=== PATIENT | male | born 1965 | race Caucasian/White ===

== ENCOUNTER 2023-04-24 08:37 | Emergency (ER) | payer OTHER, SELFPAY ==
[2023-04-24 08:43] VITALS: BP 179/88; PULSE 106; RESP 19; TEMP 36.6; O2SAT 93; BMI 33.6
--- NOTE | 2023-04-24 08:54 | EKG12_ITS ---
Test Reason : SOB Blood Pressure : / mmHG Vent. Rate : 109 BPM Atrial Rate : 109 BPM P-R Int : 136 ms QRS Dur : 084 ms QT Int : 318 ms P-R-T Axes : 043 041 051 degrees QTc Int : 428 ms Sinus tachycardia Otherwise normal ECG Confirmed by DEJA HENDERSON, TRACY ([id number]), magazine editor ROHIT MORALES ([id number]) on 05/26/2023 1:36:57 PM Referred By: MYNOR Confirmed By:TRACY SHORT MD
--- NOTE | 2023-04-24 08:57 | NURSING ---
I DONT BELIEVE ANYTHING YOU SAY, YECENIA HAD TO MANY PEOPLE KILLED IN THIS HOSPITAL.
[2023-04-24 08:58] VITALS: O2SAT 94
[2023-04-24 08:59] VITALS: BP 179/88; PULSE 114; RESP 26; O2SAT 92
--- NOTE | 2023-04-24 09:09 | EX.ED.DYSGE1 ---
HPI History of Present Illness Chief Complaint: Shortness of Breath Narrative Narrative: Patient is a 57-year-old male who is presenting to the ER today with multiple flulike symptoms. Patient has sinus headache, cough, congestion, sore throat, bilateral ear congestion/popping, left-sided chest ache/tightness. Patient says that he woke up this morning at 4:00 in the morning which he totally does. He drinks a pot of coffee, smokes 5 cigarettes, then walks a dog. Patient says that he got back to his house at 715 and had chills, felt feverish, no nausea, vomiting, diarrhea. Chest ache, short of breath, and did not feel well. Patient took an ambulance because he does not have the keys to his car at this time, he lives by himself at home with a dog. Patient was due to travel this morning to [place]. Patient has no recent sick contacts. Patient has no recent traveling. Patient does have a history of TIA/stroke. Patient was taking a full aspirin a day but currently does not. No other acute complaints at this time. Patient does have myalgia and arthralgia. [facility] Medical History (Updated 04/24/23 @ 10:[address] Rubén Villalta DO) TIA (transient ischemic attack) Allergy/AdvReac Type Severity Reaction Status Date / Time adhesive tape Allergy Hives Verified 04/24/23 08:43 codeine Allergy HYPERTENSIO Verified 04/24/23 08:43 N Social History Smoking Status: Current every day smoker tobacco type: cigarettes ROS ROS ED ROS Narrative REVIEW OF SYSTEMS: Unless otherwise stated in this report the patient's positive and negative responses for review of systems for constitutional, eyes, ENT, cardiovascular, respiratory, gastrointestinal, neurological, , musculoskeletal, and integument systems and related systems to the presenting problem are either stated in the history of present illness or were not pertinent or were negative for the symptoms and/or complaints related to the presenting medical problem. EXAM Physical Exam Narrative Exam Narrative: Vital signs reviewed and patient is not hypoxic. General: The patient appears well and in no apparent distress. Patient is resting comfortably on cart. Not toxic, lethargic, or listless. Skin: Warm, dry, no pallor noted. There is no rash noted. Head: Normocephalic, atraumatic; no tenderness to palpation to bilateral frontal or maxillary sinus. Eye: Normal conjunctiva, no drainage, EOMI. PERRL. Ears, Nose, Mouth, and Throat: oral mucosa is moist. Nares patent. Mouth without vesicles. Clear drainage noted to the posterior pharynx. No posterior pharyngeal erythema, exudate, petechiae, no unilateral swelling. Cardiovascular: Regular Rate and Rhythm, no murmurs, gallops, or rubs; no reproducible tenderness palpation to anterior, lateral, posterior chest wall. Respiratory: Patient is in no distress, no accessory muscle use, lungs are clear to auscultation, no wheezing, rales or rhonchi Back: non-tender, no CVA tenderness bilaterally to percussion. NO CTLS midline or paraspinal tenderness to palpation. GI: Soft, no tenderness to palpation, no masses appreciated. No rebound, guarding, or rigidity noted. Musculoskeletal: The patient has full range of motion of all extremities and joints with no difficulty. Patient has no motor, no sensory deficits. Neurological: A&O x4, normal speech, no focal neurological deficits. Psychiatric: Cooperative Const Vital Signs: 04/24/23 08:43 04/24/23 08:58 04/24/23 08:59 Temperature 97.9 F Temperature Source Temporal Pulse Rate 106 H 114 H Respiratory Rate 19 H 26 H Respiratory Effort Short of Breath Respiratory Depth Normal Respiratory Pattern Normal Blood Pressure 179/88 H 179/88 H Blood Pressure Mean 118 118 Pulse Ox 93 92 Oxygen Delivery Method Room Air Room Air Room Air 04/24/23 09:01 Temperature Temperature Source Pulse Rate Respiratory Rate Respiratory Effort Respiratory Depth Respiratory Pattern Blood Pressure Blood Pressure Mean Pulse Ox Oxygen Delivery Method Room Air [facility] MDM Narrative Medical decision making narrative: Patient lab work shows patient does have leukocytosis of 16. Patient's troponin is negative. Patient is displaying flulike symptoms. Patient was [id number] products to help with cold, cough, congestion. No other acute complaints at this time. Patient does feel better with IV fluids. Patient was given aspirin and IV Toradol prior to discharge Lab Data Attestation: I reviewed the patient's lab results. Labs: Laboratory Results - last 24 hr 04/24/23 09:10 WBC 16.2 H RBC 5.16 Hgb 15.2 Hct 46.1 MCV 89.3 MCH 29.5 MCHC 33.0 RDW Std Deviation 47.9 H RDW Coeff of Chey 14.6 Plt Count 271 MPV 9.5 Immature Gran % (Auto) 0.400 Neut % (Auto) 84.1 H Lymph % (Auto) 4.[address] [place] % (Auto) 2.2 Eos % (Auto) 8.2 H Baso % (Auto) 0.3 Absolute Neuts (auto) 13.6 H Absolute Lymphs (auto) 0.78 L Nucleated RBC % 0 Sodium 135 L Potassium 3.8 Chloride 105 Carbon Dioxide 24.0 Anion Gap 6 BUN 9 Creatinine 1.02 Estim Creat Clear Calc 82.50 Est GFR (MDRD) Af Amer 97 Est GFR (MDRD) Non-Af 80 BUN/Creatinine Ratio 8.8 L Glucose 102 Calcium 8.8 Magnesium 2.0 Troponin I High Sens 5 Radiography Chest X-Ray - ED: Read by ED Physician (Patient chest x-ray shows no acute cardial pulm disease, no infiltrate, no effusion. This was interpreted by Dr. Villalta) Diagnostic Testing: Clinical Impression(s) from Imaging Studies Chest X-Ray 04/24/23 09:22 IMPRESSION: Normal x-ray examination of the chest. Electronically Signed: Armando Elam MD at 9:49 EDT , EKG Initial EKG: Attestation: I personally reviewed and interpreted this EKG as follows: Comments: EKG interpretation. Sinus tachycardia 109. Normal axis deviation. No acute ST elevation, no acute ectopy. Nonspecific ST changes. QTc of 428 Discharge Plan Triage Chief Complaint: Shortness of Breath ED Provider: Rubén Villalta Dx/Rx/DC Orders Clinical Impression: URI (upper respiratory infection), Flu-like symptoms, Dyspnea, Chest pain, atypical Instructions: ED Chest Pain, Uncertain Cause, ED Dyspnea, ED URI, Viral, No Abx (Adult) Primary Care Provider: Care Physician,No Primary Referrals: Care Physician,No Primary [Primary Care Provider] - Activity Restrictions/Additional Instructions: Use [id number] DayQuil, NyQuil and Flonase. Alternate Tylenol Motrin every 4 hours. Increase fluids. Follow-up with PCP if any other acute concerns. Use [id number]-aod-[id number] cough medication as well, Mucinex DM Disposition Disposition: Home, Self Care
[2023-04-24] MEDS: 0.9% Normal Saline (1000mL) 1,000 ML 150 ML IV (09:17)
[2023-04-24] MEDS: 0.9% Normal Saline (500mL Bag) 500 ML 999 ML IV (09:17)
[2023-04-24] MEDS: Aspirin 81 MG TAB.CHEW 324 MG PO (09:17)
--- NOTE | 2023-04-24 09:22 | RAD_ITS ---
STUDY: X-RAY CHEST REASON FOR EXAM: Male, 57 years old. Chest pain TECHNIQUE: Single AP portable view of the chest. COMPARISON: None. FINDINGS: EKG electrodes are seen. The lungs are clear and expanded. There is no demonstrated pleural abnormality. Normal size heart. Normal mediastinum and cedric. Normal visualized pulmonary arteries. Normal visualized aortic arch and descending thoracic aorta. Normal visualized thoracic spine. Normal visualized ribs, clavicles, and shoulders. There is no demonstrated abnormality of the visualized soft tissue structures of the upper abdomen. RAD/Chest 1 View (Portable) IMPRESSION: Normal x-ray examination of the chest. Electronically Signed: Armando Elam MD at 9:49 EDT ,
[2023-04-24 09:24] LABS: Absolute Lymphocyte Count 0.78 X10^3/uL (0.83-4.51); Absolute Neutrophil Count 13.6 X10^3/uL (2.0-7.7); Basophil# 0.05 X10^3/uL; Basophil% 0.3 % (0-1); Eosinophil# 1.32 X10^3/uL; Eosinophils% 8.2 % (0-5); Hematocrit 46.1 % (40-54); Hemoglobin 15.2 g/dL (13.0-16.5); Lymphocyte # 0.78 X10^3/ul (0.83-4.51); Lymphocyte % 4.8 % (19-41); Mean Corpuscular Hgb 29.5 pg (27.0-32.0); Mean Corpuscular Volume 89.3 fL (80-94); Mean Platelet Vol. 9.5 fl (6.2-12.0); Monocyte# 0.35 X10^3/uL; Monocyte% 2.2 % (0-10); NRBC Flagged by Analyzer 0 % (0-5); Neutrophil # 13.62 X10^3/uL (2.7-7.7); Neutrophil % 84.1 % (47-70); POSITIVE MORPHOLOGY YES; Platelet Count 271 K/mm3 (150-450); RBC Distribution Width CV 14.6 % (11.6-14.6); RBC Distribution Width SD 47.9 fl (35.1-43.9); Red Blood Count 5.16 M/mm3 (4.6-6.2); White Blood Count 16.2 K/mm3 (4.4-11.0)
[2023-04-24 09:26] LABS: Differential Indicated SCAN CRITERIA MET
[2023-04-24 09:42] LABS: Anion Gap 6 (5-15); BUN 9 mg/dL (7-18); BUN/Creat Ratio 8.8 RATIO (10-20); Calcium,Total 8.8 mg/dL (8.5-10.1); Chloride 105 mmol/L (98-107); Creatinine, Serum 1.02 mg/dL (0.70-1.30); EST Glomerular Filtration Rate 80 mL/min (>60); Est Glom Filt Rate - Afr Amer 97 mL/min (>60); Glucose 102 mg/dL (74-106); Potassium 3.8 mmol/L (3.5-5.1); Sodium Level 135 mmol/L (136-145); Troponin-I HS (w/2H Reflex) 5 pg/mL (3.0-78.0)
--- NOTE | 2023-04-24 10:17 | NURSING ---
PT VERBALLY ABUSIVE AND CUSSING AT THIS NURSE AND PROVIDER. PT HAD BEEN OFFERED SOCKS PREVIOUSLY AND REFUSED. PT CALLED OUT C/O FEET BEING COLD AND WHY DIDNT I GET FOOT CIRCULATATORS THEY DO IN [place]!? YOU DONT DO MUCH HERE IN THE ER BUT TAKE MY MONEY. UPON LEAVING, PT HITTING WALL ON HIS WAY OUT.
--- NOTE | 2023-04-24 10:20 | ED.RN ---
PT LEFT PRIOR TO RECEIVING TORADOL.
[2023-04-24 11:19] LABS: Reflex Troponin-HS? (from REC) Y
== END 2023-04-24 10:24 | disposition home or self-care (01) ==
PROVIDERS: Emergency Provider Emergency Medicine; Visit Provider Emergency Medicine
DX: J06.9 Acute upper respiratory infection, unspecified (principal); R06.00 Dyspnea, unspecified; R07.89 Other chest pain; F17.210 Nicotine dependence, cigarettes, uncomplicated; Z86.73 Personal history of transient ischemic attack (TIA), and cerebral infarction without residual deficits
CPT/HCPCS: 71045; 80048; 83735; 84484; 85025; 87811; 93005; 96360; 99284; J7030